=== PATIENT | female | born 1965 | race Caucasian/White ===

== ENCOUNTER 2017-02-05 09:49 | Day surgery (SDC) | payer OTHER ==
[2017-02-01 13:48] VITALS: BMI 38.4
[2017-02-05] MEDS ORDERED: PROPOFOL 20 ML ONE (11:36)
[2017-02-05] MEDS ORDERED: DEXAMETHASONE SOD PHOSPHATE 4 MG/1 ML VIAL ONE (11:36)
[2017-02-05] MEDS ORDERED: MIDAZOLAM HCL 2 MG/2 ML SINGLE DOSE VIAL ONE ×2 (11:37→12:24)
[2017-02-05] MEDS ORDERED: LEVOFLOXACIN 500 MG PREMIX BAG IVPB ONE (12:18)
[2017-02-05] MEDS ORDERED: ETOMIDATE 20 MG/10 ML AMPUL IVPUSH ONE ×4 (12:22→12:32)
[2017-02-05 13:43] VITALS: TEMP 97.8
--- NOTE | 2017-02-05 13:44 | OP ---
Operative Note - Note: Operative Date: 02/05/17 Pre-Operative Diagnosis: right renal stone Operation: right eswl Findings: 9 mm right mid pole stone Post-Operative Diagnosis: Same as Pre-op Surgeon: Vazquez Sam Anesthesia: Fractional Operative Report Dictated: Yes
[2017-02-05] MEDS ORDERED: ONDANSETRON 4 MG/2 ML VIAL ONE (15:18)
[2017-02-05] MEDS ORDERED: PROMETHAZINE HCL 25 MG/1 ML VIAL IVPUSH PRN (15:24)
[2017-02-05] MEDS ORDERED: ONDANSETRON 4 MG/2 ML VIAL IVPUSH PRN (15:24)
[2017-02-05] MEDS ORDERED: LACTATED RINGERS SOLUTION 1,000 ML IV SCH (15:30)
[2017-02-05 17:24] VITALS: BP 130/76; PULSE 72
--- NOTE | 2017-02-06 08:04 | OP ---
DATE OF OPERATION: 02/05/2017 PREOPERATIVE DIAGNOSIS: Right renal stone. POSTOPERATIVE DIAGNOSIS: Right renal stone. PROCEDURE: Right extracorporeal shock wave lithotripsy. ATTENDING: Vazquez Bautista MD ANESTHESIA: Fractional. DESCRIPTION OF OPERATION: Patient was brought in the operating room, placed in supine position on the operating room table. Ultrasonography and fluoroscopy were performed. A 9-mm right mid-pole stone was identified. Anesthesia and preoperative antibiotics were administered. At this point, extracorporeal shock wave lithotripsy was started; 2500 impulses at 18 joules of power were administered to the stone with excellent fragmentation noted. No complications were noted. The patient tolerated the procedure very well. No complications were noted. Radu [id number]
== END 2017-02-05 16:15 | disposition home or self-care (01) ==
LOC: JASU-SURG 09:49
PROVIDERS: ATTEND Urology
PROC: 0TF3XZZ Fragmentation in Right Kidney Pelvis, External Approach (ICD-10-PCS; principal; 2017-02-05 11:00)
DX: N20.0 Calculus of kidney (principal)
CPT/HCPCS: 94760

== ENCOUNTER 2018-02-05 07:28 | Day surgery (SDC) | payer OTHER ==
[2018-01-31 15:45] VITALS: BMI 38.5
[2018-02-05] MEDS ORDERED: oxyCODONE HCL 10 MG SUSTAINED ACTING TABLET ONE (07:47)
[2018-02-05] MEDS ORDERED: GABAPENTIN 300 MG CAPSULE (FP) ONE (07:48)
[2018-02-05] MEDS ORDERED: CELECOXIB 200 MG CAPSULE ONE (07:48)
--- NOTE | 2018-02-05 07:57 | HP ---
[facility] - Chief Complaint Chief Complaint: left knee pain - Past Medical History Allergies/Adverse Reactions: Allergies Allergy/AdvReac Type Severity Reaction Status Date / Time egg Allergy Severe lips swell Verified 01/31/18 15:30 peanut Allergy Severe lips swell Verified 01/31/18 15:30 codeine [Codeine] Allergy Mild Nausea Verified 01/31/18 15:30 ...LMP Comment: AGE 48 - Current Medications Current Medications: Home Medications Medication Instructions Recorded Lisinopril 10 mg PO HS 02/01/17 Mirabegron [Myrbetriq] 50 mg PO HS 02/01/17 Tiotropium [place] [Spiriva] 1 inh PO DAILY 01/31/18 Tiotropium [place] [Spiriva] 18 mcg IH DAILY 01/31/18 [facility] Physical Exam - Physical Examination General Appearance: Well Nourished, Well Developed, Alert & Oriented x3 ENT: Clear Lung: Normal air movement Heart: Regular rate & rhythm Extremities: Other (left knee- +swelling, + ttp medially, decr rom, nvi xrays show grade 4 medial djd) Neurological: Intact, Alert, Oriented [facility] Impression/Plan - Impression/Plan Impression: left knee medial djd Operative Procedure: left medial katja ukr Date to be Performed: 02/05/18
[2018-02-05] MEDS ORDERED: ceFAZolin SODIUM 1 GM VIAL ONE ×2 (08:08→10:03)
[2018-02-05] MEDS ORDERED: TRANEXAMIC ACID 1000 MG/10 ML VIAL ONE ×2 (08:08→10:03)
[2018-02-05] MEDS ORDERED: ROPIVICAINE 0.2%/MORPH PF/KETOROLAC - 51ML DISP.SYRINGE IA ONE ×3 (08:27→11:19)
[2018-02-05] MEDS ORDERED: BUPIVACAINE HCL/PF (5 MG/ML) 30 ML VIAL IJ ONE (08:52)
[2018-02-05] MEDS ORDERED: MIDAZOLAM HCL 2 MG/2 ML SINGLE DOSE VIAL ONE (08:52)
[2018-02-05] MEDS ORDERED: DEXAMETHASONE SOD PHOSPHATE/PF 10 MG/ML SDV ONE (08:52)
[2018-02-05] MEDS ORDERED: TRANEXAMIC ACID 1000 MG/10 ML VIAL IVPUSH ONE (09:30)
[2018-02-05] MEDS ORDERED: CEFAZOLIN 2 GM in DEXTROSE 5%-WATER - 50 ML IVPB ONE (09:30)
[2018-02-05] MEDS ORDERED: THROMBIN (RECOMBINANT) 5,000 UNIT VIAL TP ONE (11:13)
[2018-02-05] MEDS ORDERED: GELATIN, ABSORBABLE 100 EACH SPONGE TP ONE ×2 (11:13→11:18)
[2018-02-05] MEDS ORDERED: THROMBIN (BOVINE) 5,000 UNIT VIAL TP ONE (11:17)
[2018-02-05] MEDS ORDERED: ONDANSETRON 4 MG/2 ML VIAL IVPUSH PRN (12:00)
[2018-02-05] MEDS ORDERED: GABAPENTIN 300 MG CAPSULE (FP) PO ONE (12:00)
[2018-02-05] MEDS ORDERED: LACTATED RINGERS SOLUTION 1,000 ML IV SCH (12:00)
[2018-02-05] MEDS ORDERED: oxyCODONE HCL 10 MG SUSTAINED ACTING TABLET PO ONE (12:00)
[2018-02-05] MEDS ORDERED: MAG HYDROX/AL HYDROX/SIMETH 30 ML UNIT-DOSE CUP PO PRN (12:00)
[2018-02-05] MEDS ORDERED: CELECOXIB 200 MG CAPSULE PO ONE (12:00)
--- NOTE | 2018-02-05 12:02 | OP ---
Operative Note - Note: Operative Date: 02/05/18 (nelson) Pre-Operative Diagnosis: left knee medial djd Operation: left medial katja ukr Post-Operative Diagnosis: Same as Pre-op Surgeon: Augusto Chacon [employer] Agent: Chong Johnson Anesthesiologist/BUSHEL GIRL: Lynette Valencia Anesthesia: Spinal, Local Specimens Removed: bone fragments Estimated Blood Loss (mls): 100 Operative Report Dictated: Yes
[2018-02-05] MEDS ORDERED: oxyCODONE HCL 5 MG TABLET PO PRN (12:22)
[2018-02-05] MEDS: ACETAMINOPHEN 325 MG TABLET (FP) PO SCH ×2 (13:31→21:33)
--- NOTE | 2018-02-05 13:43 | SPEC ---
DATE OF OPERATION: 02/05/2018 PREOPERATIVE DIAGNOSIS: Degenerative joint disease, left knee. POSTOPERATIVE DIAGNOSIS: Degenerative joint disease, left knee. PROCEDURE: Left medial unicompartmental knee replacement with robotic-assisted navigation (MAKOplasty) and patelloplasty. SURGICAL ATTENDING: Augusto Chacon MD DRIVE IN WAITER/WAITRESS: NAHOMI Newby ANESTHESIA: Regional and spinal. CLOSURE: Medial RANJAN components with a 2 tibia, 2 femur, and a 9 polyethylene; No. 1 Vicryl fascia; 0 and 2-0 subcutaneous; 3-0 Monocryl subcuticular with skin glue for skin; 4-0 undyed Vicryl for pin sites. ESTIMATED BLOOD LOSS: Negligible. COMPLICATIONS: None. CONDITION: To recovery in stable condition. DESCRIPTION OF OPERATIVE PROCEDURE: Patient was taken to the operating room on February 05, 2018. Spinal and regional anesthesia was administered by the anesthesiologist. IV Kefzol and TXA were administered prophylactically prior to the case. A well-padded pneumatic tourniquet was placed on the left proximal thigh. The left lower extremity was prepped and draped in the usual sterile fashion. A 6- to 8-cm longitudinal incision over the medial side of the patella from mid patella to the tibial tubercle was incised and was deepened using Bovie cautery. An arthrotomy was then made just medial to the patellar tendon and the patella. Subperiosteal dissection was done on the anteromedial proximal tibia all the way back to the MCL. Partial fat pad excision was performed, exposing the medial compartment. Checkpoint was malleable at both the femur and the tibia. Using 2 stab incisions in the femur 1 handbreadth above the patella on the femur and 2 stab incisions 1 handbreadth below the tibial tubercle on the tibia, 2 threaded pins were drilled in parallel fashion from anterior to posterior, going through the proximal cortex and engaging the 2nd but not through the 2nd cortex. To these threaded pins were fastened navigation rays, 1 on the femur and 1 on the tibia. The knee was then registered with the navigation device with the center of the rotation of the hip, medial and lateral malleoli, and multiple points both on the femur and on the tibia. Excellent registration of less than 0.5 mm was obtained on both to ensure adequate registration. The navigation device ensured us to "pop the bubbles" both on the femur and the tibia and that was performed and passed registration. The knee was then thoroughly inspected to remove all osteophytes both on the femur and the tibia. Also, osteophytes on the trochlea and on the surface of the patella were removed as well. The knee was then stressed with valgus stress at 0, 30, 60, 90, and 120 degrees of flexion. This propagated a looseness/tightness graft. The virtual positions of the components were then optimized to ensure an excellent graft. The tracking also was optimized by manipulating the virtual position to ensure that the femoral component articulated with the central portion of the tibial component. The robot was then brought into the field and was registered. The robot was used to bur the bone on both the femur and the tibia as to the specifications of the components. The trial components were then applied on both the femur and the tibia with an appropriate polyethylene insert. The knee was taken through a range of motion and found to have full extension, full flexion, with excellent stability. Stressing the graft revealed an excellent looseness/tightness graft with the trial components in place. The trial components were removed. The knee was thoroughly irrigated with a copious amount of antibiotic irrigation. The real components were then cemented in using modern generation cement techniques with antibiotic cement and pressurization. After the cement was hardened, the knee was thoroughly inspected to remove out all excess cement. The real polyethylene insert was then clipped into place. Range of motion and stability were again assessed to be as they were with the trials. At this time, the pins and the checkpoints were removed. The knee was again thoroughly irrigated. The arthrotomy was closed with No. 1 Vicryl, 0 and 2-0 subcutaneous, and 3-0 Monocryl subcuticular with skin glue for the skin, 4-0 undyed Vicryl for the pin sites. Sterile pressure dressing was placed over the knee. Patient awakened from anesthesia and transferred to recovery in stable condition. No complications. Estimated blood loss negligible. X-rays postoperatively revealed excellent position of the components. Radu [id number]
[2018-02-05] MEDS: CEFAZOLIN 2 GM/D5W 2 GM/50 ML ML IVPB SCH (18:21)
[2018-02-05] MEDS ORDERED: PT OWN MED DRAWER 7, Y5N ONE (21:31)
[2018-02-05] MEDS: SENNOSIDES/DOCUSATE COMBO (SENNA PLUS) TABLET (UD) PO SCH (21:34)
[2018-02-05] MEDS: BUDESONIDE/FORMETEROL FUMARATE 160/4.5 mcg INHALER IH SCH (21:35)
[2018-02-05] MEDS: PRAMIPEXOLE DIHYDROCHLORIDE 0.25 MG TABLET PO SCH (21:35)
[2018-02-05] MEDS ORDERED: LISINOPRIL 10 MG TABLET (FP) PO SCH (22:00)
[2018-02-05] MEDS ORDERED: PATIENT'S OWN MEDICATION (NON-FORMULARY) (Mirabegron [Myrbetriq] 50 MG) PO SCH (22:00)
[2018-02-06] MEDS: CEFAZOLIN 2 GM/D5W 2 GM/50 ML ML IVPB SCH (01:40)
[2018-02-06] MEDS: ACETAMINOPHEN 325 MG TABLET (FP) PO SCH ×3 (01:40→13:33)
[2018-02-06] MEDS: oxyCODONE HCL 5 MG TABLET PO PRN ×2 (06:22→13:33)
[2018-02-06] MEDS ORDERED: ASPIRIN 325 MG TABLET PO SCH (08:00)
[2018-02-06] MEDS ORDERED: PT OWN MED DRAWER 7, Y5N ONE (09:27)
[2018-02-06] MEDS ORDERED: MULTIVITAMINS (DAILY MVI) TABLET (FP) PO SCH (10:00)
[2018-02-06] MEDS ORDERED: PATIENT'S OWN MEDICATION (NON-FORMULARY) (Tiotropium Bromide [Spiriva] 18 MCG) IH SCH (10:00)
[2018-02-06] MEDS ORDERED: TIOTROPIUM BROMIDE 2.5 MCG (SPIRIVA) RESPIMAT INHALER IH SCH (10:00)
[2018-02-06] MEDS ORDERED: PANTOPRAZOLE 40 MG TABLET (FP) PO SCH (10:00)
--- NOTE | 2018-02-06 10:09 | PN ---
Progress Note (short form) - Note Progress Note: Ortho Pt seen and examined s/p left medial katja ukr pod #1 Selected Entries 02/06/18 06:00 Temperature 98.6 F Pulse Rate 73 Respiratory 18 Rate Blood Pressure 123/60 dressing c/d/i, calf soft, nt rom 0-70, nvi a/p PT dvt ppx pain control d/c home today f/u in 1 week
--- NOTE | 2018-02-06 10:10 | DS ---
Physical Examination Vital Signs: Vital Signs Temperature 98.6 F 02/06/18 06:00 Pulse Rate 73 02/06/18 06:00 Respiratory Rate 18 02/06/18 06:00 Blood Pressure 123/60 02/06/18 06:00 O2 Sat by Pulse Oximetry (%) 96 02/06/18 06:00 Discharge Summary Reason For Visit: OSTEOARTHRITIS Procedures: Principal: left medial katja ukr Hospital Course: admitted for elective left medial katja ukr, uneventful post-op, stable for d/c Condition: Good - Instructions Diet, Activity, Other Instructions: Post-op Instructions-Partial Knee Replacement Call the office for a follow-up appointment in 1 week - [phone] Aspirin 325mg daily for 6 weeks. Pain medication was sent into your pharmacy. Apply Graduated Compression Stockings (TEDs) to both lower extremities- remove daily for hygiene ONLY Apply Sequential Compression Device (SCDs) to both Lower extremities remove for PT and hygiene ONLY Apply cold packs to affected area for 15 minutes every 2 hours. Physical Therapist will come to your home for the first 5 days. You will be set up with outpatient PT at your first post-operative visit. Patient may ambulate as tolerated-encourage self care (at least every 2-3 hours while awake) with walker or cane Maintain Aquacel (waterproof) dressing to operative wound (will be removed by surgeon at first office visit) Shower with Aquacel dressing in place-if Aquacel integrity compromised, remove and apply dry sterile dressing and notify Orthopedist. DO NOT SHOWER unless Orthopedists approves without Aquacel dressing CONTACT THE OFFICE FOR ANY CHANGE IN YOUR CONDITION (for example-fever greater than 102 degrees, excessive bleeding from operative site, purulent drainage, severe swelling or pain) GO TO THE EMERGENCY ROOM IF THERE IS A MEDICAL EMERGENCY Knee Precautions: * Keep a rolled towel under affected heel while in bed or chair (to keep knee in extension) * Keep affected leg elevated except during mealtimes * DO NOT PLACE PILLOW UNDER AFFECTED KNEE * If you have any questions, please do not hesitate to call the office - [phone]. Referrals: Augusto Chacon MD [Staff Physician] - Disposition: [facility]/HOME HEALTH CARE - Home Medications Comprehensive Discharge Medication List: Ambulatory Orders Lisinopril 10 mg PO HS 11/02/17 Mirabegron [Myrbetriq] 50 mg PO HS 02/01/17 Tiotropium [place] [Spiriva] 18 mcg IH DAILY 01/31/18 Aspirin [ASA -] 325 mg PO DAILY@0800 tablet 02/05/18 Budesonide/Formeterol Fumarate [SYMBICORT 160/4.5mcg -] 1 inh PO BID 02/05/18 Oxycodone HCl/Acetaminophen [Percocet 5-325 mg Tablet -] 1 - 2 tab PO Q6H #50 tab MDD 8 02/05/18 Pramipexole Di-HCl [Pramipexole Dihydrochloride] 0.25 mg PO BID 02/05/18
[2018-02-06] MEDS: BUDESONIDE/FORMETEROL FUMARATE 160/4.5 mcg INHALER IH SCH (11:01)
[2018-02-06] MEDS: SENNOSIDES/DOCUSATE COMBO (SENNA PLUS) TABLET (UD) PO SCH (11:02)
[2018-02-06] MEDS: PRAMIPEXOLE DIHYDROCHLORIDE 0.25 MG TABLET PO SCH (11:02)
[2018-02-06 14:25] VITALS: BP 114/84; PULSE 70; TEMP 98.4
== END 2018-02-06 15:38 | disposition home health service (06) ==
LOC: FASU 07:28 → FM/S 07:28 → FASU 02-06 15:38
PROVIDERS: ATTEND Orthopaedic Surgery
PROC: 8E0YXBZ Computer Assisted Procedure of Lower Extremity (ICD-10-PCS; 2018-02-05)
PROC: 8E0Y0CZ Robotic Assisted Procedure of Lower Extremity, Open Approach (ICD-10-PCS; 2018-02-05)
PROC: 0SRD0L9 Replacement of Left Knee Joint with Medial Unicondylar Synthetic Substitute, Cemented, Open Approach (ICD-10-PCS; principal; 2018-02-05 10:38)
DX: M17.12 Unilateral primary osteoarthritis, left knee (principal)
CPT/HCPCS: 20985; 27446; C1776; S2900; 73560-TC-LT-FY; 94760; 97116-GP; 97162-GP

== ENCOUNTER → 2022-03-23 | Day surgery (SDC) | payer OTHER | END | disposition home or self-care (01) | LOC: FMAMMOTONE 12:24 | PROVIDERS: ATTEND Internal Medicine | PROC: 0HBU3ZX Excision of Left Breast, Percutaneous Approach, Diagnostic (ICD-10-PCS; principal; 2022-03-23) | DX: D24.2 Benign neoplasm of left breast (principal); R92.1 Mammographic calcification found on diagnostic imaging of breast | CPT/HCPCS: 19081; 76098-TC-FY; 87899; 88305-TC; A4648 ==